=== PATIENT | male | born 1975 | race Caucasian/White ===

== ENCOUNTER 2016-11-23 21:28 | Emergency (ER) | payer SELFPAY ==
[~2016-11-23] VITALS: Ht 172.7 cm; Wt 81.5 kg
[~2016-11-23 21:28] MED LIST: ALBU8.5H IH; PRED10 PO
[2016-11-23 22:01] VITALS: BP 130/75
[2016-11-23] MEDS ORDERED: LORazepam 1 MG TABLET PO ONE (22:30)
== END 2016-11-23 22:48 | disposition home or self-care (01) ==
LOC: EMS 21:31
DX: F41.9 Anxiety disorder, unspecified (principal); J45.909 Unspecified asthma, uncomplicated
CPT/HCPCS: 93005; 99284

== ENCOUNTER 2017-12-05 15:11 | Emergency (ER) | payer SELFPAY ==
[~2017-12-05] VITALS: Ht 170.2 cm; Wt 77.3 kg
[~2017-12-05 15:11] MED LIST changes: -ALBU8.5H IH; +ALBU8.5H8 IH
[2017-12-05] MEDS ORDERED: ALBUTEROL SULFATE 2.5 MG/0.5 ML NEB SOLUTION NEB ONE (15:30)
[2017-12-05] MEDS ORDERED: IPRATROPIUM BROMIDE 0.5 MG/2.5 ML NEB SOLUTION NEB ONE (15:30)
[2017-12-05] MEDS ORDERED: 0.9% SODIUM CHLORIDE 5 ML NEB SOLUTION NEB ONE (15:39)
[2017-12-05] MEDS ORDERED: PredniSONE 20 MG TABLET PO ONE (16:15)
[2017-12-05] MEDS ORDERED: ALBUTEROL SULFATE 5 MG/ML 20 ML NEB SOLN [BULK] NEB ONE (16:15)
[2017-12-05] MEDS ORDERED: BECLOMETHASONE DIPR HFA 80 MCG/PUFF 10.6 GM INHALER IH ONE (16:15)
[2017-12-05] MEDS ORDERED: 0.9% SODIUM CHLORIDE 15 ML NEB SOLUTION NEB ONE (16:26)
[2017-12-05 17:35] VITALS: BP 123/72
== END 2017-12-05 17:41 | disposition home or self-care (01) ==
LOC: EMS 15:12
DX: J45.901 Unspecified asthma with (acute) exacerbation (principal); Z79.899 Other long term (current) drug therapy
CPT/HCPCS: 94644; 99285; J7512; J7611; J7613; 94640; J3535

== ENCOUNTER 2018-03-20 00:43 | Emergency (ER) | payer MEDICAID ==
[~2018-03-20] VITALS: Ht 167.6 cm; Wt 79.5 kg
[~2018-03-20 00:43] MED LIST changes: -PRED10 PO
[2018-03-20] MEDS ORDERED: ALBUTEROL SULFATE 5 MG/ML 20 ML NEB SOLN [BULK] NEB ONE ×2 (00:45→02:15)
[2018-03-20] MEDS ORDERED: IPRATROPIUM BROMIDE 0.5 MG/2.5 ML NEB SOLUTION NEB ONE ×2 (00:45→02:15)
[2018-03-20] MEDS ORDERED: 0.9% SODIUM CHLORIDE 5 ML NEB SOLUTION NEB ONE ×2 (00:52→02:08)
[2018-03-20] MEDS ORDERED: MethylPREDNISolone SOD SUCC 125 MG/2 ML VIAL IVP ONE (01:15)
[2018-03-20] MEDS ORDERED: EPINEPHrine 1:1,000 [1 MG/ML] AMP SQ ONE (01:45)
[2018-03-20 05:24] VITALS: BP 119/76
== END 2018-03-20 05:26 | disposition home or self-care (01) ==
LOC: EMS 00:44
DX: J45.901 Unspecified asthma with (acute) exacerbation (principal)
CPT/HCPCS: 71045; 94644; 94645; 96372; 96374; 99285; J0171; J2930; J7611

== ENCOUNTER 2018-05-31 08:37 | Emergency (ER) | payer SELFPAY ==
[~2018-05-31] VITALS: Ht 172.7 cm; Wt 79.5 kg
[2018-05-31 09:35] LABS: BASOPHILS % (AUTO) 1.2 % (0.0-2.0); HEMATOCRIT 46.8 % (41-53); HEMOGLOBIN 15.7 g/dL (13.5-17.5); LYMPHOCYTES # (AUTO) 1.9 K/uL (1.0-4.8); LYMPHOCYTES % (AUTO) 33.5 % (22.0-44.0); MEAN CORPUSCULAR HGB CONC 33.6 G/dL (31.0-37.0); MEAN CORPUSCULAR VOLUME 83 fL (80-100); MONOCYTES # (AUTO) 0.4 K/uL (0.1-1.0); MONOCYTES % (AUTO) 7.4 % (2.0-9.0); NEUTROPHILS # (AUTO) 2.3 K/uL (1.8-7.7); NEUTROPHILS % (AUTO) 41.1 % (40.0-70.0); PLATELET COUNT (AUTO) 377 K/uL (150-450); RED BLOOD CELL COUNT(AUTO) 5.61 MIL/uL (4.50-5.90); RED CELL DISTRIBUTION WIDTH 14.4 % (11.5-14.5)
[2018-05-31 09:36] LABS: EOSINOPHILS % (AUTO) 16.8 % (1.0-6.0)
[2018-05-31 09:44] LABS: ANION GAP 7 mmol/L (8-16); CALCIUM, TOTAL 9.5 mg/dL (8.8-10.5); CARBON DIOXIDE 30 mmol/L (22-29); CHLORIDE 97 mmol/L (98-107); CREATININE 0.82 mg/dL (0.60-1.30); GLOMERULAR FILTR. RATE CALC > 60 mL/min (>60); GLUCOSE,RANDOM 91 mg/dL (70-110); SODIUM SERUM 134 mmol/L (136-145); UREA NITROGEN, BLOOD 13 mg/dL (7-18)
[2018-05-31 09:45] LABS: PROTHROMBIN TIME 10.5 SEC (9.4-11.6)
[2018-05-31 09:50] LABS: ALANINE AMINOTRANSFERASE 24 U/L (12-78); ALKALINE PHOSPHATASE 106 U/L (46-116); ASPARTATE AMINOTRANSFERASE 26 U/L (15-37); BILIRUBIN,TOTAL 0.7 mg/dL (0.1-1.0); TOTAL PROTEIN, SERUM 9.6 g/dL (6.4-8.2)
[2018-05-31 10:09] LABS: AMPHET/METH SCREEN,URINE POSITIVE (NEGATIVE); BARBITURATE SCREEN, URINE NEGATIVE (NEGATIVE); BENZODIAZEPINES SCREEN,URINE NEGATIVE (NEGATIVE); CANNABINOID SCREEN,URINE NEGATIVE (NEGATIVE); COCAINE SCREEN,URINE NEGATIVE (NEGATIVE); METHADONE SCREEN, URINE NEGATIVE (NEGATIVE); OPIATE SCREEN,URINE NEGATIVE (NEGATIVE)
[2018-05-31 10:10] LABS: APPEARANCE,URINE CLEAR (CLEAR); BILIRUBIN,URINE NEGATIVE (NEGATIVE); GLUCOSE, URINE (UA) NEGATIVE (NEGATIVE); KETONES,URINE NEGATIVE (NEGATIVE); LEUKOCYTE ESTERASE ,URINE NEGATIVE (NEGATIVE); NITRATE,URINE NEGATIVE (NEGATIVE); OCCULT BLOOD,URINE MODERATE (NEGATIVE); PROTEIN,URINE NEGATIVE (NEGATIVE); UROBILINOGEN,URINE 0.2 mg/dL (<=1.0)
[2018-05-31 10:11] LABS: PHENCYCLIDINE SCREEN,URINE NEGATIVE (NEGATIVE)
[2018-05-31 10:20] LABS: BACTERIA,URINE None Seen /HPF (None Seen); WBC,URINE None Seen /HPF (0-5)
[2018-05-31] MEDS ORDERED: LORazepam 1 MG TABLET PO ONE (10:30)
[2018-05-31 12:04] VITALS: BP 138/101
== END 2018-05-31 12:39 | disposition home or self-care (01) ==
LOC: EMS 08:38
DX: F15.10 Other stimulant abuse, uncomplicated (principal); R51 Headache; R20.0 Anesthesia of skin; R20.2 Paresthesia of skin; Z79.899 Other long term (current) drug therapy
CPT/HCPCS: 70450; 86850; 86900; 86901; 93005

== ENCOUNTER 2018-06-09 21:38 | Emergency (ER) | payer SELFPAY ==
[~2018-06-09] VITALS: Ht 165.1 cm; Wt 79.5 kg
[2018-06-09] MEDS ORDERED: ALBUTEROL SULFATE 5 MG/ML 20 ML NEB SOLN [BULK] NEB ONE (21:45)
[2018-06-09] MEDS ORDERED: IPRATROPIUM BROMIDE 0.5 MG/2.5 ML NEB SOLUTION NEB ONE (21:45)
[2018-06-09] MEDS ORDERED: 0.9% SODIUM CHLORIDE 5 ML NEB SOLUTION NEB ONE (21:55)
[2018-06-09] MEDS ORDERED: MethylPREDNISolone SOD SUCC 125 MG/2 ML VIAL IM ONE (22:00)
[2018-06-09 22:47] LABS: ANION GAP 3 mmol/L (8-16); CALCIUM, TOTAL 8.3 mg/dL (8.8-10.5); CARBON DIOXIDE 33 mmol/L (22-29); CHLORIDE 104 mmol/L (98-107); CREATININE 0.96 mg/dL (0.60-1.30); GLOMERULAR FILTR. RATE CALC > 60 mL/min (>60); GLUCOSE,RANDOM 120 mg/dL (70-110); POTASSIUM 3.1 mmol/L (3.5-5.1); SODIUM SERUM 140 mmol/L (136-145); UREA NITROGEN, BLOOD 20 mg/dL (7-18)
[2018-06-09 22:58] LABS: BASOPHILS % (AUTO) 0.4 % (0.0-2.0); HEMATOCRIT 38.7 % (41-53); HEMOGLOBIN 13.2 g/dL (13.5-17.5); LYMPHOCYTES # (AUTO) 3.3 K/uL (1.0-4.8); MEAN CORPUSCULAR HEMOGLOBIN 28.1 pg (26.0-34.0); MEAN CORPUSCULAR VOLUME 83 fL (80-100); MONOCYTES # (AUTO) 0.8 K/uL (0.1-1.0); MONOCYTES % (AUTO) 8.2 % (2.0-9.0); NEUTROPHILS # (AUTO) 3.8 K/uL (1.8-7.7); NEUTROPHILS % (AUTO) 38.7 % (40.0-70.0); PLATELET COUNT (AUTO) 315 K/uL (150-450); RED BLOOD CELL COUNT(AUTO) 4.69 MIL/uL (4.50-5.90); RED CELL DISTRIBUTION WIDTH 14.2 % (11.5-14.5)
[2018-06-09 23:07] LABS: EOSINOPHILS % (AUTO) 19.7 % (1.0-6.0)
[2018-06-09] MEDS ORDERED: EPINEPHrine 1:1,000 [1 MG/ML] AMP SQ ONE (23:45)
[2018-06-10 00:04] VITALS: BP 124/70
[2018-06-10] MEDS ORDERED: ALBUTEROL SULFATE HFA 90 MCG/PUFF 8 GM INHALER IH ONE (01:00)
== END 2018-06-10 01:12 | disposition home or self-care (01) ==
LOC: EMS 21:40
DX: J45.901 Unspecified asthma with (acute) exacerbation (principal); F15.10 Other stimulant abuse, uncomplicated; Z79.899 Other long term (current) drug therapy
CPT/HCPCS: 36415; 71045; 80048; 85025; 94644; 96372; 99285; J0171; J2930; J3535

== ENCOUNTER 2018-09-13 03:14 | Emergency (ER) | payer SELFPAY ==
[~2018-09-13] VITALS: Ht 170.2 cm; Wt 77.3 kg
[2018-09-13] MEDS ORDERED: 0.9% SODIUM CHLORIDE 5 ML NEB SOLUTION NEB ONE (03:25)
[2018-09-13] MEDS ORDERED: IPRATROPIUM BROMIDE 0.5 MG/2.5 ML NEB SOLUTION NEB ONE (03:30)
[2018-09-13] MEDS ORDERED: ALBUTEROL SULFATE 5 MG/ML 20 ML NEB SOLN [BULK] NEB ONE (03:30)
[2018-09-13] MEDS ORDERED: PredniSONE 20 MG TABLET PO ONE (04:30)
[2018-09-13] MEDS ORDERED: EPINEPHrine 1:1,000 [1 MG/ML] AMP SQ ONE (04:30)
[2018-09-13 04:45] VITALS: BP 119/72
[2018-09-13] MEDS ORDERED: ALBUTEROL SULFATE HFA 90 MCG/PUFF 8 GM INHALER IH ONE (05:30)
== END 2018-09-13 05:43 | disposition home or self-care (01) ==
LOC: EMS 03:16
DX: J45.901 Unspecified asthma with (acute) exacerbation (principal)
CPT/HCPCS: 71045; 94640; 94644; 94645; 96372; 99285; J0171; J7512; J3535

== ENCOUNTER 2018-10-08 11:21 | Emergency (ER) | payer SELFPAY ==
[~2018-10-08] VITALS: Ht 172.7 cm; Wt 77.3 kg
[2018-10-08 13:05] VITALS: BP 133/82
[2018-10-08] MEDS ORDERED: ALBUTEROL SULFATE 2.5 MG/0.5 ML NEB SOLUTION NEB ONE (13:15)
[2018-10-08] MEDS ORDERED: PredniSONE 20 MG TABLET PO ONE (13:15)
[2018-10-08] MEDS ORDERED: LORazepam 1 MG TABLET PO ONE (13:15)
[2018-10-08] MEDS ORDERED: IPRATROPIUM BROMIDE 0.5 MG/2.5 ML NEB SOLUTION NEB ONE (13:15)
== END 2018-10-08 13:52 | disposition home or self-care (01) ==
LOC: EMS 11:21
DX: F43.22 Adjustment disorder with anxiety (principal); F10.10 Alcohol abuse, uncomplicated; J45.909 Unspecified asthma, uncomplicated; Y90.9 Presence of alcohol in blood, level not specified
CPT/HCPCS: 94640; 99284; J7512

== ENCOUNTER 2019-05-15 18:09 | Emergency (ER) | payer SELFPAY ==
[~2019-05-15] VITALS: Ht 165.1 cm; Wt 75.0 kg
[2019-05-15] MEDS ORDERED: LIDOCAINE 1%/EPI 1:200,000/PF 10 ML VIAL INJ ONE (19:30)
[2019-05-15] MEDS ORDERED: ALBUTEROL SULFATE HFA 90 MCG/PUFF 8 GM INHALER IH ONE (19:45)
[2019-05-15] MEDS ORDERED: BACITRACIN 0.9 GM PACKET OINTMENT TP ONE (20:15)
[2019-05-15 20:38] VITALS: BP 131/79
== END 2019-05-15 20:54 | disposition home or self-care (01) ==
LOC: EMS 18:11
DX: S71.111A Laceration without foreign body, right thigh, initial encounter (principal); R03.0 Elevated blood-pressure reading, without diagnosis of hypertension; J45.909 Unspecified asthma, uncomplicated; Z79.899 Other long term (current) drug therapy; W26.8XXA Contact with other sharp object(s), not elsewhere classified, initial encounter; Y93.89 Activity, other specified; Y92.89 Other specified places as the place of occurrence of the external cause; Y99.8 Other external cause status
CPT/HCPCS: 12002; 94640; 99283; J3490; J3535

== ENCOUNTER 2023-01-04 19:29 | Emergency (ER) | payer SELFPAY ==
[~2023-01-04] VITALS: Ht 165.1 cm; Wt 79.0 kg
[2023-01-04 20:04] VITALS: BP 132/75; PULSE 79; RESP 18; TEMP 99.6
== END 2023-01-04 21:48 | disposition left against medical advice (07) ==
LOC: EMS 19:31
DX: J45.909 Unspecified asthma, uncomplicated (principal); Z53.21 Procedure and treatment not carried out due to patient leaving prior to being seen by health care provider
CPT/HCPCS: 99281; Z7502

== ENCOUNTER 2023-12-20 21:45 | Emergency (ER) | payer SELFPAY ==
[~2023-12-20] VITALS: Ht 165.1 cm; Wt 79.5 kg
[2023-12-20 22:07] VITALS: BP 138/97; PULSE 80; RESP 24; TEMP 98
== END 2023-12-21 00:08 | disposition left against medical advice (07) ==
LOC: EMS 21:45
DX: R06.02 Shortness of breath (principal); Z53.21 Procedure and treatment not carried out due to patient leaving prior to being seen by health care provider

== ENCOUNTER 2024-04-02 03:34 | Emergency (ER) | payer SELFPAY ==
[~2024-04-02] VITALS: Ht 170.2 cm; Wt 79.5 kg
[2024-04-02 04:04] VITALS: BP 138/77; TEMP 98.1
[2024-04-02] MEDS ORDERED: ALBU18HF12 IH (04:18)
[2024-04-02] MEDS: DEXAMETHASONE SOD PHOS 4 MG/ML 5 ML VIAL IM ONE (04:30)
[2024-04-02 04:40] VITALS: PULSE 85; RESP 22; O2SAT 98
[2024-04-02 04:41] VITALS: PULSE 85; RESP 22; O2SAT 98
[2024-04-02] MEDS: ALBUTEROL SULFATE 2.5 MG/0.5 ML NEB SOLUTION NEB ONE (04:48)
[2024-04-02 04:54] VITALS: PULSE 82; RESP 22; O2SAT 100
== END 2024-04-02 05:23 | disposition home or self-care (01) ==
LOC: EMS 03:35
DX: J45.901 Unspecified asthma with (acute) exacerbation (principal)
CPT/HCPCS: 94060; 99283; 93005; 96372; 94640; J1100; 99284

== ENCOUNTER 2024-07-04 04:30 | Emergency (ER) | payer MEDICAID ==
[~2024-07-04] VITALS: Ht 165.1 cm; Wt 77.3 kg
[~2024-07-04 04:30] MED LIST changes: +ALBU18HF12 IH
[2024-07-04 04:39] VITALS: TEMP 98
[2024-07-04] MEDS: IBUPROFEN 600 MG TABLET PO ONE (06:16)
[2024-07-04 06:28] LABS: BASOPHILS % (AUTO) 0.7 % (0.0-2.0); EOSINOPHILS % (AUTO) 11.9 % (1.0-6.0); HEMATOCRIT 37.5 % (41-53); HEMOGLOBIN 12.5 g/dL (13.5-17.5); LYMPHOCYTES # (AUTO) 1.3 K/uL (1.0-4.8); LYMPHOCYTES % (AUTO) 36.5 % (22.0-44.0); MEAN CORPUSCULAR HEMOGLOBIN 29.2 pg (26.0-34.0); MEAN CORPUSCULAR HGB CONC 33.4 G/dL (31.0-37.0); MEAN CORPUSCULAR VOLUME 88 fL (80-100); MONOCYTES # (AUTO) 0.4 K/uL (0.1-1.0); MONOCYTES % (AUTO) 10.5 % (2.0-9.0); NEUTROPHILS # (AUTO) 1.4 K/uL (1.8-7.7); NEUTROPHILS % (AUTO) 40.4 % (40.0-70.0); PLATELET COUNT (AUTO) 269 K/uL (150-450); RED BLOOD CELL COUNT(AUTO) 4.27 MIL/uL (4.50-5.90); RED CELL DISTRIBUTION WIDTH 13.8 % (11.5-14.5); WHITE BLOOD COUNT (AUTO) 3.5 K/uL (4.5-11.0)
[2024-07-04 06:36] LABS: ANION GAP 4 mmol/L (8-16); CALCIUM, TOTAL 8.4 mg/dL (8.8-10.5); CARBON DIOXIDE 30 mmol/L (22-29); CHLORIDE 101 mmol/L (98-107); CREATININE 0.79 mg/dL (0.60-1.30); GLOMERULAR FILTR. RATE CALC > 60 mL/min (>60); GLUCOSE,RANDOM 82 mg/dL (70-110); POTASSIUM 3.3 mmol/L (3.5-5.1); SODIUM SERUM 135 mmol/L (136-145); UREA NITROGEN, BLOOD 13 mg/dL (7-18)
[2024-07-04] MEDS ORDERED: IBUP-1492 PO (07:09)
[2024-07-04 07:20] VITALS: BP 140/72; PULSE 62; RESP 20; O2SAT 100
[2024-07-04] MEDS: POTASSIUM CHLORIDE 20 MEQ ER TABLET PO ONE (07:25)
== END 2024-07-04 07:45 | disposition home or self-care (01) ==
LOC: EMS 04:30
DX: M54.12 Radiculopathy, cervical region (principal); E87.6 Hypokalemia; J45.909 Unspecified asthma, uncomplicated
CPT/HCPCS: 80048; 85025; 99283

== ENCOUNTER 2025-05-08 18:40 | Emergency (ER) | payer MEDICAID ==
[~2025-05-08] VITALS: Ht 167.6 cm; Wt 75.0 kg
[~2025-05-08 18:40] MED LIST changes: +IBUP-1492 PO
[2025-05-08 18:51] VITALS: BP 129/89; PULSE 104; RESP 18; TEMP 98.2; O2SAT 99
[2025-05-08 19:25] LABS: PLATELET COUNT (AUTO) 368 K/uL (150-450); RED BLOOD CELL COUNT(AUTO) 4.97 MIL/uL (4.50-5.90); RED CELL DISTRIBUTION WIDTH 14.1 % (11.5-14.5); WHITE BLOOD COUNT (AUTO) 5.6 K/uL (4.5-11.0)
[2025-05-08 19:27] LABS: CALCIUM, TOTAL 8.4 mg/dL (8.8-10.5); CREATININE 0.85 mg/dL (0.60-1.30); GLOMERULAR FILTR. RATE CALC > 60 mL/min (>60); GLUCOSE,RANDOM 93 mg/dL (70-110); SODIUM SERUM 134 mmol/L (136-145); UREA NITROGEN, BLOOD 12 mg/dL (7-18)
[2025-05-08 19:43] LABS: TROPONIN I-HIGH SENSITIVITY 4 ng/L (<76)
[2025-05-08 21:22] LABS: TROPONIN I-HIGH SENSITIVITY 4 ng/L (<76)
[2025-05-08] MEDS: ACETAMINOPHEN 500 MG TABLET PO ONE (21:27)
[2025-05-08] MEDS: ALBUTEROL SULFATE HFA 90 MCG/PUFF 8 GM INHALER IH ONE (21:27)
== END 2025-05-08 21:40 | disposition home or self-care (01) ==
LOC: EMS 18:40
DX: J45.909 Unspecified asthma, uncomplicated (principal); R07.89 Other chest pain
CPT/HCPCS: 99285; 71045; 80048; 84484; 85025; 36415; 94640; 93005; J3535